=== PATIENT | male | born 1980 | race Two or more races ===

== ENCOUNTER 2016-07-15 13:02 | Emergency (ER) | payer BC ==
--- NOTE | ~2016-07-15 | CR126 ---
[facility] A Service of [facility] RADIOLOGY TEXT RESULTS PATIENT: JAVAN CASTELLON LOCATION: [facility] : 76 UNIT #: [id number] AGE: [address]: Sally Mendoza APRN SEX: M ORDER DR: [id number] [facility]. [place], [place] [address] [id number] E MR#: [id number] Acc #: [id number] NAME: JAVAN CASTELLON : 1980 SEX: M STUDY DATE/TIME: 07/15/2016 12:46 UNIT: [id number] ROOM: STUDY DESCRIPTION: CR Foot Complete Min 3 View Lt Attending Physician: Sally Mendoza A.P.R.N. Ordering Physician: Jose Light M.D. Primary Care Physician: Grace Mane M.D. MEDICAL IMAGING REPORT This report is preliminary unless electronic signature is present EXAM 3 views left foot. INDICATION Pain with puncture wound on the dorsal aspect of the foot after the patient had a metal cabinet fall on his left foot today. FINDINGS No acute fracture or subluxation of the left foot is identified. No aggressive osseous abnormalities are seen. Patient does have focal soft tissue swelling overlying the dorsum of the foot at the level of the metatarsal heads. No radiopaque retained foreign body is seen. IMPRESSION Soft tissue swelling identified over the dorsum of the left foot. No underlying fracture is seen and no radiopaque retained foreign body is identified. Dictated by... Toma Redd M.D. THIS IS AN ELECTRONICALLY VERIFIED REPORT Toma Redd M.D. at 07/15/2016 5:25 PM AFF/tmw TD: 07/15/2016 16:24 JOB #: [id number] MEDICAL IMAGING REPORT COPY
== END 2016-07-15 13:49 | disposition home or self-care (01) ==
LOC: CFTX 13:02
DX: S90.32XA Contusion of left foot, initial encounter (principal); I10 Essential (primary) hypertension; E78.00 Pure hypercholesterolemia, unspecified; E11.9 Type 2 diabetes mellitus without complications; X50.0XXA Overexertion from strenuous movement or load, initial encounter; Y92.009 Unspecified place in unspecified non-institutional (private) residence as the place of occurrence of the external cause
CPT/HCPCS: 29540; 73630; 99283